=== PATIENT | female | born 1970 | race Caucasian/White ===

== ENCOUNTER 2022-06-04 15:39 | Emergency (ER) | payer MEDICAID, MEDICARE ==
[~2022-06-04] VITALS: Ht 157.5 cm; Wt 79.4 kg
[~2022-06-04 15:39] MED LIST: ALPR0.252 PO; GABA300C PO; GLIP5TAB13 PO; LANTUS SUBQ; METF100028 PO; SIMV80TA67 PO; ZOLP10TA1 PO
[2022-06-04 15:51] VITALS: BP 109/66
[2022-06-04] MEDS ORDERED: CYCL-711 PO (17:00)
[2022-06-04] MEDS ORDERED: METH4TAB1 PO (17:00)
[2022-06-04] MEDS ORDERED: ACET-10509 PO (17:00)
[2022-06-04 17:25] VITALS: BP 131/79
--- NOTE | 2022-06-04 17:25 | NUR ---
Patient discharged with v/s stable. Written and verbal after care instructions given. Patient alert, oriented and verbalized understanding of instructions. Ambulatory with steady gait. All questions addressed prior to discharge. ID band removed. Patient advised to follow up with PMD. Rx of FLEXERIL, TYLENOL AND MEDROL DOSE RAYMOND given. Opportunity to ask questions provided and answered.
--- NOTE | 2022-06-04 17:26 | NUR ---
The patient's care was reviewed and supervised by Lesa Sosa, RN, RN.
== END 2022-06-04 17:25 | disposition home or self-care (01) ==
LOC: MED 15:39
DX: S46.911A Strain of unspecified muscle, fascia and tendon at shoulder and upper arm level, right arm, initial encounter (principal); J45.909 Unspecified asthma, uncomplicated; E11.9 Type 2 diabetes mellitus without complications; Z86.73 Personal history of transient ischemic attack (TIA), and cerebral infarction without residual deficits; Z79.899 Other long term (current) drug therapy; Z79.4 Long term (current) use of insulin; X58.XXXA Exposure to other specified factors, initial encounter; Y92.89 Other specified places as the place of occurrence of the external cause; Y93.89 Activity, other specified; Y99.8 Other external cause status
CPT/HCPCS: 99283

== ENCOUNTER 2022-08-17 21:15 | Emergency (ER) | payer MEDICAID ==
[~2022-08-17] VITALS: Ht 157.5 cm; Wt 77.1 kg
[~2022-08-17 21:15] MED LIST changes: +ACET-10509 PO; +CYCL-711 PO; +METH4TAB1 PO
[2022-08-17 21:20] VITALS: BP 147/72
--- NOTE | 2022-08-17 21:28 | NUR ---
PT. PUT ON BED 11, A/OX4, NOT IN DISTRESS. ATTACHED TO MONITOR.
[2022-08-17 21:58] LABS: BASOPHILS # (AUTO) 0.1 K/uL (0.00-0.22); EOSINOPHILS # (AUTO) 0.3 K/uL (0-0.4); EOSINOPHILS % (AUTO) 3.7 % (0.0-4.0); HEMATOCRIT 34.5 % (36-48); HEMOGLOBIN 11.5 g/dL (12.0-16.0); LYMPHOCYTES # (AUTO) 2.9 K/uL (2.5-16.5); MEAN CORPUSCULAR HEMOGLOBIN 29 pg (27-31); MEAN CORPUSCULAR HGB CONC 33 g/dL (33-37); MEAN CORPUSCULAR VOLUME 87.8 fL (80-94); MONOCYTES # (AUTO) 0.6 K/uL (0.8-1.0); MONOCYTES % (AUTO) 8.4 % (1.7-9.3); NEUTROPHILS # (AUTO) 3.7 K/uL (1.8-7.7); NEUTROPHILS % (AUTO) 48.9 % (42.2-75.2); PLATELET COUNT (AUTO) 368 K/uL (140-450); RED BLOOD CELL COUNT(AUTO) 3.93 MIL/uL (4.20-5.40); WHITE BLOOD COUNT (AUTO) 7.6 K/uL (4.8-10.8)
[2022-08-17 22:09] LABS: APPEARANCE,URINE CLEAR (CLEAR); BILIRUBIN,URINE NEGATIVE (NEGATIVE); BLOOD, URINE 1+ (NEGATIVE); COLOR,URINE YELLOW (YELLOW); LEUKOCYTE ESTERASE ,URINE NEGATIVE (NEGATIVE); NITRITE, URINE NEGATIVE (NEGATIVE); UGLUCOSE 3+ (NEGATIVE)
[2022-08-17 22:13] LABS: ALBUMIN 3.1 g/dL (3.4-5.0); ANION GAP 10.6 (8-16); CARBON DIOXIDE 29.3 mmol/L (21-32); CREATININE 0.8 mg/dL (0.6-1.3); POTASSIUM 3.9 mmol/L (3.5-5.1); TOTAL BILIRUBIN 0.1 mg/dL (0.0-1.0)
[2022-08-17 22:22] LABS: RBC,URINE 0-5 /HPF (0-5)
--- NOTE | 2022-08-17 22:28 | NUR ---
ER Dr. Leyva by bedside at this time evaluating patient.
[2022-08-17] MEDS ORDERED: HYDROcodone/APAP 5/325 MG 1 TAB TAB PO ONE (22:35)
[2022-08-18] MEDS ORDERED: ACET-10509 PO (01:51)
[2022-08-18 02:04] VITALS: BP 118/69
--- NOTE | 2022-08-18 02:04 | NUR ---
Patient does not wish to proceed with medical care recommended by ERMD. Patient given information related to possible complications, up to and including , which could occur as a result of leaving hospital at this time. Patient verbalizes understanding of risks involved leaving against medical advice. Patient has signed AMA form.
== END 2022-08-18 02:09 | disposition left against medical advice (07) ==
LOC: MED 21:15
DX: R10.9 Unspecified abdominal pain (principal); R06.02 Shortness of breath; J45.909 Unspecified asthma, uncomplicated; E11.9 Type 2 diabetes mellitus without complications; I10 Essential (primary) hypertension; Z90.49 Acquired absence of other specified parts of digestive tract; Z79.899 Other long term (current) drug therapy; Z79.4 Long term (current) use of insulin
CPT/HCPCS: 36415; 80053; 81001; 81025; 83690; 85025; 99284